=== PATIENT | male | born 1970 | race Caucasian/White ===

== ENCOUNTER → 2016-05-26 | Outpatient (CLI) | payer OTHER ==
[~2016-05-26] MED LIST: ASPI81TA PO; IBUPOTC PO; LOPR50TA PO
--- NOTE | 2016-05-27 11:27 | REP ---
NUCLEAR THYROID UPTAKE AND SCAN: Following the oral administration of 396 microcuries of iodine 123 as sodium iodine, thyroid uptake is measured. The 2 hour uptake is 10.34% which is within the normal range of 6-12%. The 24 hour uptake is 31.43% which is within the normal range of 25-35%. Thyroid scan shows both lobes of the thyroid to be relatively normal in size, both in the range of about 5 cm in length. No focal hot or cold nodule is seen. IMPRESSION: Essentially normal thyroid uptake, and normal appearing thyroid nuclear scan. Signed by Derick Ball MD 05/27/2016 01:29 P
== END | disposition home or self-care (01) ==
LOC: M RAD 10:44
PROVIDERS: ATTEND Physician Assistant Medical
DX: E05.00 Thyrotoxicosis with diffuse goiter without thyrotoxic crisis or storm (principal)
CPT/HCPCS: 78014; A9516

== ENCOUNTER 2018-08-21 23:20 | Emergency (ER) | payer OTHER ==
[~2018-08-21] VITALS: Ht 185.4 cm; Wt 109.5 kg
[~2018-08-21 23:20] MED LIST changes: +ASPI81CH36 PO; -ASPI81TA PO; +LOPR1TAB6 PO; -LOPR50TA PO
[2018-08-21] MEDS ORDERED: VITA50005 PO (23:32)
[2018-08-21] MEDS ORDERED: CYCL5TAB PO (23:32)
[2018-08-21] MEDS ORDERED: SILD100T PO (23:32)
[2018-08-21] MEDS ORDERED: AMLO5TAB6 PO (23:32)
[2018-08-21] MEDS ORDERED: METO1TAB7 PO (23:32)
[2018-08-21] MEDS ORDERED: HYDR25TAB PO (23:32)
[2018-08-21] MEDS ORDERED: METH25TAB PO (23:32)
[2018-08-22] MEDS ORDERED: GABA-1171 PO ×2 (00:06)
[2018-08-22 00:17] LABS: HEMATOCRIT 50.5 % (42.0-52.0); HEMOGLOBIN 18.2 g/dl (13.5-17.5); MEAN CORPUSCULAR HEMOGLOBIN 34.5 pg (27.0-33.0); MEAN CORPUSCULAR VOLUME 95.8 fl (80.0-96.0); PLATELET COUNT, AUTOMATED 315 10^3/uL (150-450); RED BLOOD COUNT 5.27 10^6/uL (4.30-6.10); WHITE BLOOD COUNT 12.5 10^3/uL (4.0-10.0)
[2018-08-22 00:48] LABS: BLOOD UREA NITROGEN 21 MG/DL (7-18); CALCIUM LEVEL 8.9 MG/DL (8.5-10.1); CARBON DIOXIDE LEVEL 31 MEQ/L (21-32); CHLORIDE LEVEL 98 MEQ/L (98-107); CPK CREATINE PHOSPHOKINASE 204 U/L (39-308); CREATININE FOR GFR 1.29 MG/DL (0.70-1.30); GLOMERULAR FILTRATION RATE > 60.0 (>60); GLUCOSE, FASTING 170 MG/DL (70-100); MB/CK RELATIVE INDEX 0.59 (< OR =4); POTASSIUM SERUM 3.7 MEQ/L (3.5-5.1); SODIUM LEVEL 137 MEQ/L (136-145); TROPONIN I < 0.02 NG/ML (< 0.10)
[2018-08-22 01:05] LABS: ATYPICAL LYMPH 1 % (0-5); BASOPHILS 1 % (0-4); EOSINOPHILS 4 % (0-5); LYMPHOCYTES 39 % (16-52); MONOCYTES 4 % (0-8); NEUTROPHILS 51 % (35-75)
[2018-08-22 01:09] LABS: PLATELET ESTIMATE NORMAL (NORMAL); SMUDGE CELLS 1+
[2018-08-22] MEDS ORDERED: METOPROLOL TART 50 MG TAB PO ONE ×2 (01:15→02:30)
[2018-08-22] MEDS ORDERED: METOPROLOL 5 MG/5 ML VIAL IV SCH (01:30)
[2018-08-22 02:00] LABS: FREE T4 0.74 NG/DL (0.76-1.46)
[2018-08-22 02:19] VITALS: BP 118/83
[2018-08-22 03:25] VITALS: BP 124/83
--- NOTE | 2018-08-22 06:38 | ECGEPIP ---
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
--- NOTE | 2018-08-22 06:45 | ECGEPIP ---
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
--- NOTE | 2018-08-22 07:59 | REP ---
Portable chest x-ray: Single view. History: Chest pain. Comparison study: January 26, 2016. Findings: EKG monitoring electrodes overlie the chest. Heart is not enlarged. Lungs are well inflated and clear. Pulmonary vasculature is not increased. No significant bony abnormality. Impression: Negative portable chest x-ray. Electronically Signed by Rock Ley MD 08/22/2018 07:50 A
== END 2018-08-22 03:34 | disposition home or self-care (01) ==
LOC: M ED 23:20
DX: I48.91 Unspecified atrial fibrillation (principal); E07.9 Disorder of thyroid, unspecified; F17.210 Nicotine dependence, cigarettes, uncomplicated; Z79.82 Long term (current) use of aspirin; Z79.899 Other long term (current) drug therapy

== ENCOUNTER 2018-12-25 11:14 | Emergency (ER) | payer OTHER ==
[~2018-12-25] VITALS: Ht 180.3 cm; Wt 108.2 kg
[~2018-12-25 11:14] MED LIST changes: +AMLO5TAB6 PO; +CYCL5TAB PO; +GABA-1171 PO; +HYDR25TAB PO; +METH25TAB PO; +METO1TAB7 PO; +SILD100T PO; +VITA50005 PO
[2018-12-25] MEDS ORDERED: NS 500 ML IV ONE (11:30)
[2018-12-25] MEDS ORDERED: METOPROLOL SUCC (TopROL XL) 100MG *XL* TAB PO ONE (11:30)
[2018-12-25] MEDS: METOPROLOL 5 MG/5 ML VIAL IV SCH ×3 (11:30→11:40)
[2018-12-25] MEDS ORDERED: METH10TA PO (11:36)
[2018-12-25 12:02] VITALS: BP 110/87
--- NOTE | 2018-12-25 12:34 | REP ---
CHEST, PORTABLE: There is no evidence of acute infiltrate. No pleural effusion is seen. The heart is normal in size. The mediastinal silhouette is unremarkable. The visualized osseous structures are intact. IMPRESSION: No acute pulmonary disease. Electronically Signed by Derick Ball MD 12/26/2018 09:27 A
[2018-12-25 12:45] LABS: BASO # 0.1 10^3/uL (0.0-0.2); BASO % 0.5 % (0.0-1.0); EOS # 0.1 10^3/uL (0.0-0.50); HEMATOCRIT 45.2 % (42.0-52.0); HEMOGLOBIN 15.6 g/dl (13.5-17.5); LYMPH # 2.7 10^3/uL (1.5-4.5); LYMPH % 25.7 % (24.0-44.0); MEAN CORPUSCULAR HEMOGLOBIN 34.7 pg (27.0-33.0); MEAN CORPUSCULAR HGB CONC 34.5 g/dl (32.0-36.5); MEAN CORPUSCULAR VOLUME 100.4 fl (80.0-96.0); MONO # 0.9 10^3/uL (0.0-0.8); NEUTROPHILS # 6.6 10^3/uL (1.8-7.7); NEUTROPHILS % 63.4 % (36.0-66.0); PLATELET COUNT, AUTOMATED 225 10^3/uL (150-450); WHITE BLOOD COUNT 10.4 10^3/uL (4.0-10.0)
[2018-12-25 13:03] LABS: INR 0.98; PROTHROMBIN TIME 12.7 SECONDS (11.8-14.0)
[2018-12-25 13:14] LABS: ALBUMIN 3.3 GM/DL (3.2-5.2); ALT/SGPT 44 U/L (12-78); BILIRUBIN,DIRECT 0.1 MG/DL (0.0-0.2); BILIRUBIN,TOTAL 0.5 MG/DL (0.2-1.0); BLOOD UREA NITROGEN 16 MG/DL (7-18); CARBON DIOXIDE LEVEL 29 MEQ/L (21-32); CHLORIDE LEVEL 105 MEQ/L (98-107); CPK CREATINE PHOSPHOKINASE 98 U/L (39-308); CREATININE FOR GFR 1.03 MG/DL (0.70-1.30); FREE T4 0.87 NG/DL (0.76-1.46); GLOMERULAR FILTRATION RATE > 60.0 (>60); GLUCOSE, FASTING 118 MG/DL (70-100); LIPASE 158 U/L (73-393); MB/CK RELATIVE INDEX 1.02 (< OR =4); NT-PRO BNP 251 PG/ML (<125); POTASSIUM SERUM 3.8 MEQ/L (3.5-5.1); SODIUM LEVEL 138 MEQ/L (136-145); TOTAL PROTEIN 6.8 GM/DL (6.4-8.2); TROPONIN I < 0.02 NG/ML (< 0.10)
[2018-12-25] MEDS ORDERED: ASPI-1 PO (13:50)
[2018-12-25] MEDS ORDERED: METO1TAB33 PO (13:51)
[2018-12-25 16:08] LABS: CK-MB VALUE MASS 1.2 NG/ML (<3.6); CPK CREATINE PHOSPHOKINASE 100 U/L (39-308); TROPONIN I < 0.02 NG/ML (< 0.10)
[2018-12-25 16:15] VITALS: BP 116/68
--- NOTE | 2018-12-25 19:53 | ECGEPIP ---
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
--- NOTE | 2018-12-25 19:58 | ECGEPIP ---
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
--- NOTE | 2018-12-25 20:02 | ECGEPIP ---
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
== END 2018-12-25 16:32 | disposition home or self-care (01) ==
LOC: M ED 11:14 → EDBD 11:14 → M ED 16:32
DX: I48.91 Unspecified atrial fibrillation (principal); I10 Essential (primary) hypertension; E78.5 Hyperlipidemia, unspecified; F43.10 Post-traumatic stress disorder, unspecified; E03.9 Hypothyroidism, unspecified; Z79.899 Other long term (current) drug therapy; Z79.82 Long term (current) use of aspirin; F17.210 Nicotine dependence, cigarettes, uncomplicated

== ENCOUNTER 2019-03-23 20:55 | Inpatient (IN) | payer OTHER ==
[~2019-03-23] VITALS: Ht 185.4 cm; Wt 103.1 kg
[~2019-03-23 20:55] MED LIST changes: +ASPI-1 PO; +METH10TA PO; +METO1TAB33 PO
[2019-03-23 21:37] LABS: HEMATOCRIT 47.3 % (42.0-52.0); HEMOGLOBIN 16.4 g/dl (13.5-17.5); MEAN CORPUSCULAR HEMOGLOBIN 33.3 pg (27.0-33.0); MEAN CORPUSCULAR HGB CONC 34.7 g/dl (32.0-36.5); MEAN CORPUSCULAR VOLUME 96.1 fl (80.0-96.0); RED BLOOD COUNT 4.92 10^6/uL (4.30-6.10); WHITE BLOOD COUNT 6.9 10^3/uL (4.0-10.0)
[2019-03-23] MEDS ORDERED: NS 1,000 ML IV ONE (21:45)
[2019-03-23 21:53] LABS: ALBUMIN 3.5 GM/DL (3.2-5.2); ALT/SGPT 61 U/L (12-78); BILIRUBIN,DIRECT < 0.1 MG/DL (0.0-0.2); BILIRUBIN,TOTAL 0.5 MG/DL (0.2-1.0); LIPASE 322 U/L (73-393); PLATELET COUNT, AUTOMATED 78 10^3/uL (150-450); TOTAL PROTEIN 7.4 GM/DL (6.4-8.2)
[2019-03-23 22:00] LABS: ATYPICAL LYMPH 9 % (0-5); EOSINOPHILS 2 % (0-3); LYMPHOCYTES 42 % (16-44); MONOCYTES 3 % (0-5); NEUTROPHILS 43 % (28-66)
[2019-03-23 22:01] LABS: PLATELET ESTIMATE DECREASED (NORMAL)
--- NOTE | 2019-03-23 22:17 | REPVR ---
PROCEDURE INFORMATION: Exam: CT Abdomen And Pelvis Without Contrast Exam date and time: 03/23/2019 9:37 PM Clinical history: 48 years old, male; Abdominal pain; Additional info: Abd pain, henry TECHNIQUE: Imaging protocol: Computed tomography of the abdomen and pelvis without contrast. Radiation optimization: All CT scans at this facility use at least one of these dose optimization techniques: automated exposure control; mA and/or kV adjustment per patient size (includes targeted exams where dose is matched to clinical indication); or iterative reconstruction. COMPARISON: No relevant prior studies available. FINDINGS: Lungs: Minimal rounded subpleural density in the posterior right lower lobe which is incompletely visualized. Liver: Normal. No mass. Gallbladder and bile ducts: The gallbladder is contracted with no stones. Pancreas: Normal. No ductal dilation. Spleen: Normal. No splenomegaly. Adrenals: Normal. No mass. Kidneys and ureters: Small nonobstructing left renal calculus in the lower pole. Stomach and bowel: Borderline distention of the stomach with fluid, food and gas. Appendix: A normal appendix is seen. Intraperitoneal space: Unremarkable. No free air. No significant fluid collection. Vasculature: There is minimal atherosclerotic calcification of the abdominal aorta. Lymph nodes: Unremarkable. No enlarged lymph nodes. Bladder: There is bladder wall thickening, however, the bladder is nondistended and is nonspecific. Reproductive: Unremarkable as visualized. Bones/joints: Unremarkable. No acute fracture. Soft tissues: Unremarkable. IMPRESSION: 1. Small nonobstructing left renal calculus. 2. There is borderline distention of the stomach which in view of a contracted gallbladder likely reflects recent ingestion. 3. Otherwise negative CT abdomen/pelvis. Electronically signed by: Agustin Mathur On 03/23/2019 22:16:41 PM
[2019-03-23] MEDS ORDERED: NS 3,140 ML in IV 1 EA IV ONE (22:30)
[2019-03-23] MEDS ORDERED: D 1010004 PO (23:17)
[2019-03-23] MEDS ORDERED: [UNRECOGNIZED DRUG - CODE] OU (23:17)
[2019-03-23] MEDS ORDERED: LISI40TA PO (23:17)
[2019-03-23] MEDS ORDERED: METO200T28 PO (23:17)
[2019-03-23] MEDS ORDERED: BAYE325T16 PO (23:17)
[2019-03-23] MEDS ORDERED: DAYT1CAP9 PO (23:17)
[2019-03-23] MEDS ORDERED: CALCIUM GLUCONATE 1,000 MG in D5W MINI-BAG PLUS 100 ML IV ONE (23:30)
[2019-03-23] MEDS ORDERED: POTASSIUM CHLORIDE 10 MEQ SR TABLET PO ONE (23:30)
--- NOTE | 2019-03-24 01:04 | REPVR ---
PROCEDURE INFORMATION: Exam: XR Chest, 1 View Exam date and time: 03/24/2019 12:50 AM Clinical history: 48 years old, male; Other: SOB TECHNIQUE: Imaging protocol: XR of the chest Views: 1 view. COMPARISON: CR PORTABLE CHEST X-RAY 12/25/2018 11:31 AM FINDINGS: Lungs: Unremarkable. No consolidation. Pleural space: Unremarkable. No pleural effusion. No pneumothorax. Heart/Mediastinum: Unremarkable. No cardiomegaly. Bones/joints: Unremarkable. IMPRESSION: Negative chest, unchanged from 12/25/2018. Electronically signed by: Agustin Mathur On 03/24/2019 01:04:26 AM
[2019-03-24 01:12] LABS: AMPHETAMINES LEVEL URINE NEGATIVE (NEGATIVE); BARBITURATES URINE NEGATIVE (NEGATIVE); BENZODIAZEPINES URINE NEGATIVE (NEGATIVE); CANNABINOIDS URINE NEGATIVE (NEGATIVE); COCAINE METABOLITE URINE NEGATIVE (NEGATIVE); METHADONE URINE NEGATIVE (NEGATIVE); OPIATES URINE NEGATIVE (NEGATIVE); PHENCYCLIDINE URINE NEGATIVE (NEGATIVE)
[2019-03-24] MEDS: NS 1,000 ML IV SCH ×2 (01:16→01:26)
[2019-03-24] MEDS ORDERED: NS 1,000 ML IV SCH (03:00)
[2019-03-24 04:00] VITALS: BP 105/63
[2019-03-24 05:40] LABS: HEMATOCRIT 42.4 % (42.0-52.0); HEMOGLOBIN 14.6 g/dl (13.5-17.5); MEAN CORPUSCULAR HGB CONC 34.4 g/dl (32.0-36.5); MEAN CORPUSCULAR VOLUME 95.9 fl (80.0-96.0); RED BLOOD COUNT 4.42 10^6/uL (4.30-6.10); WHITE BLOOD COUNT 5.1 10^3/uL (4.0-10.0)
[2019-03-24 05:42] LABS: PLATELET COUNT, AUTOMATED 71 10^3/uL (150-450)
[2019-03-24 05:58] LABS: BLOOD UREA NITROGEN 55 MG/DL (7-18); CARBON DIOXIDE LEVEL 22 MEQ/L (21-32); CHLORIDE LEVEL 111 MEQ/L (98-107); CREATININE FOR GFR 2.65 MG/DL (0.70-1.30); GLOMERULAR FILTRATION RATE 27.5 (>60); GLUCOSE, FASTING 118 MG/DL (70-100); POTASSIUM SERUM 3.8 MEQ/L (3.5-5.1); SODIUM LEVEL 141 MEQ/L (136-145)
[2019-03-24 06:20] LABS: ERYTHROCYTE SEDIMENTATION RATE 26 mm/hr (0-15)
--- NOTE | 2019-03-24 06:54 | REPVR ---
PROCEDURE INFORMATION: Exam: XR Chest, 1 View Exam date and time: 03/24/2019 6:35 AM Clinical history: 48 years old, male; Other: SOB 5 liter ns ddfor renal failure R/O edema; Additional info: SOB S/P 5liters ns for renal failure R/O edema TECHNIQUE: Imaging protocol: XR of the chest Views: 1 view. COMPARISON: CR PORTABLE CHEST X-RAY 03/24/2019 12:41 AM FINDINGS: Lungs: Unremarkable. No consolidation. Pleural space: Unremarkable. No pleural effusion. No pneumothorax. Heart/Mediastinum: Unremarkable. No cardiomegaly. Bones/joints: Unremarkable. IMPRESSION: Negative chest, unchanged from a study done earlier in the day. Electronically signed by: Agustin Mathur On 03/24/2019 06:54:27 AM
[2019-03-24 08:00] VITALS: BP 128/71
[2019-03-24] MEDS ORDERED: SLF 3 ML SYR IV PRN (08:15)
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
[2019-03-24] MEDS: VITAMIN D 1,000 INTERNATIONAL UNITS TABLET PO SCH (08:31)
[2019-03-24] MEDS: LR 1,000 ML IV SCH ×2 (08:51→15:35)
[2019-03-24] MEDS ORDERED: ASPIRIN 325 MG TAB PO SCH (09:00)
[2019-03-24 09:05] LABS: FREE T4 1.42 NG/DL (0.76-1.46); THYROID STIMULATING HORMONE 0.272 uIU/ML (0.358-3.740)
--- NOTE | 2019-03-24 11:25 | IPN ---
DATE: 03/24/2019 PRIMARY CARE PROVIDER: [facility]. FAMILY PHYSICIAN: [facility]. Yordan is seen in PCU. He was admitted for acute kidney injury. He has a baseline creatinine from 12/25/2018 of 1.0. He had a creatinine of 6.4 on admission. It is down to 2.6 after hydration. History and physical is pending, but signed out indicated he had gastroenteritis, nausea and vomiting for several days, continues to take his lisinopril. Takes no NSAIDs. There is no past history of any real problems. PAST MEDICAL HISTORY: Significant primarily for history of Grave's disease, for which he on methimazole. He had atrial fibrillation with rapid ventricular response for which he was admitted on 01/25-01/28/2016. He feels much better. He is not having nausea or vomiting. His blood pressure has recovered. He feels nearly back to baseline. PHYSICAL EXAMINATION: 105/63, pulse 78, afebrile. General appearance: Alert, conversant. In no distress. HEENT: Unremarkable. No jugular venous distention (JVD). Lungs: Clear. Heart: Regular without murmur. Abdomen: Soft, nontender. No masses. No peripheral edema. LABS: Potassium of 3.8, creatinine is 2.65. White count 5.2, hemoglobin 14.6, platelets of 71. His baseline platelets are normal, being 78 yesterday and 71 today. WBC, differential shows atypical lymphocytes of 90%. IMPRESSION: 1. Acute kidney injury. Probably from dehydration/gastroenteritis as well as YODIT inhibitor therapy. He has responded well to hydration. At this point we are changing his IV fluids as saline can itself be nephrotoxic. Will change it to lactated Ringers 125 an hour. Multiple lab tests are pending. Renal function is improving. I have not involved nephrology yet as his renal function continues to improve. His YODIT inhibitor is on hold. He has taken no NSAIDs over the counter and had no recent exposures to intravenous contrast dye. 2. Thrombocytopenia. This could be secondary to acute injury as there can be a transient drop of platelets with acute kidney injury. However, could be a manifestation of idiopathic thrombocytopenic purpura (ITP). Followup CBCs have been ordered. I have ordered a peripheral smear and an MICHEAL, a GI panel and a Helicobacter assay. He also has a history of Grave's disease which can be associated with ITP. He is on methimazole. 3. History of Grave's disease. On methimazole 10 mg daily. I have ordered a free T4 and TSH. He has no symptoms of hyperthyroidism. 4. Hypertension. His antihypertensives are on hold. His blood pressure is recovering from the dehydration. When his blood pressure recovers, we will probably restart the metoprolol. Will hold off on the lisinopril and hydrochlorothiazide. 5. Chronic pain. Apparently he has an appointment with the pain clinic coming up. He is on gabapentin as an outpatient which we will hold for now.
--- NOTE | 2019-03-24 11:58 | ECGEPIP ---
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
[2019-03-24 12:00] VITALS: BP 118/82
[2019-03-24] MEDS: SLF 3 ML SYR IV SCH ×2 (14:12→22:10)
[2019-03-24 16:00] VITALS: BP 112/72
[2019-03-24 20:00] VITALS: BP 136/73
[2019-03-24 23:59] VITALS: BP 105/72
[2019-03-25] MEDS: LR 1,000 ML IV SCH ×2 (00:04→08:00)
[2019-03-25 04:00] VITALS: BP 148/80
[2019-03-25] MEDS: SLF 3 ML SYR IV SCH (05:23)
[2019-03-25 05:39] LABS: HEMATOCRIT 40.9 % (42.0-52.0); MEAN CORPUSCULAR HEMOGLOBIN 33.3 pg (27.0-33.0); MEAN CORPUSCULAR HGB CONC 34.2 g/dl (32.0-36.5); MEAN CORPUSCULAR VOLUME 97.1 fl (80.0-96.0); RED BLOOD COUNT 4.21 10^6/uL (4.30-6.10)
[2019-03-25 05:42] LABS: PLATELET COUNT, AUTOMATED 97 10^3/uL (150-450)
[2019-03-25 05:58] LABS: BLOOD UREA NITROGEN 29 MG/DL (7-18); CALCIUM LEVEL 8.8 MG/DL (8.5-10.1); CARBON DIOXIDE LEVEL 26 MEQ/L (21-32); CHLORIDE LEVEL 106 MEQ/L (98-107); CREATININE FOR GFR 1.18 MG/DL (0.70-1.30); GLOMERULAR FILTRATION RATE > 60.0 (>60); GLUCOSE, FASTING 119 MG/DL (70-100); POTASSIUM SERUM 3.9 MEQ/L (3.5-5.1); SODIUM LEVEL 139 MEQ/L (136-145)
[2019-03-25 06:18] LABS: CRYOGLOBULINS NEGATIVE (NEGATIVE)
[2019-03-25 08:00] VITALS: BP 128/88
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
[2019-03-25] MEDS: VITAMIN D 1,000 INTERNATIONAL UNITS TABLET PO SCH (09:35)
[2019-03-25 11:14] LABS: ALBUMIN 3.26 GM/DL (3.29-5.55); ALBUMIN % 54.3 % (55.8-66.1); ALPHA-1-GLOBULINS 0.42 GM/DL (0.17-0.41); ALPHA-2-GLOBULINS 0.89 GM/DL (0.42-0.99); ALPHA-2-GLOBULINS % 14.8 % (7.1-11.8); BETA-1-GLOBULINS 0.29 GM/DL (0.28-0.60); BETA-1-GLOBULINS % 4.9 % (4.7-7.2); BETA-2-GLOBULINS 0.37 GM/DL (0.19-0.55); BETA-2-GLOBULINS % 6.1 % (3.2-6.5); GAMMA GLOBULIN % 12.9 % (11.1-18.8); GAMMA GLOBULINS 0.77 GM/DL (0.65-1.58)
[2019-03-25 12:38] LABS: HEPATITIS B SURFACE ANTIGEN NEGATIVE (NEGATIVE)
[2019-03-25 13:06] LABS: HEPATITIS B CORE ANTIBODY IGM NEGATIVE (NEGATIVE)
[2019-03-25 13:07] LABS: HEPATITIS A ANTIBODY IGM NEGATIVE (NEGATIVE)
[2019-03-27 00:06] LABS: ANA (HEP2) Negative (.); H PYLORI SERUM QUANT IGM <9.0 units (0.0-8.9)
[2019-03-27 10:23] LABS: URINE TOTAL PROTEIN 44.9 MG/DL (0-12)
[2019-03-28 11:13] LABS: UPEP INTERPRETATION NO M-SPIKE NOTED; URINE VOLUME RANDOM ML
== END 2019-03-25 11:55 | disposition home or self-care (01) | DRG 684 ==
LOC: M ED 20:55 → M ED INP 22:56 → M PCU 03-24 00:20
PROVIDERS: ADMIT General Practice; ATTEND General Practice
DX: N17.9 Acute kidney failure, unspecified (principal); I48.91 Unspecified atrial fibrillation; D69.59 Other secondary thrombocytopenia; K52.9 Noninfective gastroenteritis and colitis, unspecified; I11.9 Hypertensive heart disease without heart failure; I95.9 Hypotension, unspecified; E78.5 Hyperlipidemia, unspecified; F43.10 Post-traumatic stress disorder, unspecified; K76.0 Fatty (change of) liver, not elsewhere classified; M54.5 Low back pain; Z79.82 Long term (current) use of aspirin; Z79.899 Other long term (current) drug therapy; F17.210 Nicotine dependence, cigarettes, uncomplicated; F10.10 Alcohol abuse, uncomplicated; J06.9 Acute upper respiratory infection, unspecified; E05.00 Thyrotoxicosis with diffuse goiter without thyrotoxic crisis or storm

== ENCOUNTER 2019-06-05 21:02 | Emergency (ER) | payer OTHER ==
[~2019-06-05] VITALS: Ht 180.3 cm; Wt 105.3 kg
[~2019-06-05 21:02] MED LIST changes: +ASPI81CH32 PO; -ASPI81CH36 PO; +BAYE325T16 PO; +D 1010004 PO; +DAYT1CAP9 PO; +LISI40TA PO; +METO200T28 PO; +[UNRECOGNIZED DRUG - CODE] OU
[2019-06-05 21:46] LABS: BASO % 0.4 % (0.0-1.0); EOS # 0.1 10^3/uL (0.0-0.5); EOS % 0.8 % (0.0-3.0); HEMATOCRIT 44.5 % (42.0-52.0); HEMOGLOBIN 14.6 g/dl (13.5-17.5); LYMPH % 35.1 % (24.0-44.0); MEAN CORPUSCULAR HEMOGLOBIN 31.7 pg (27.0-33.0); MEAN CORPUSCULAR HGB CONC 32.8 g/dl (32.0-36.5); MEAN CORPUSCULAR VOLUME 96.5 fl (80.0-96.0); MONO # 0.9 10^3/uL (0.0-0.8); MONO % 7.6 % (0.0-5.0); NEUTROPHILS # 6.3 10^3/uL (1.5-8.5); NEUTROPHILS % 55.8 % (36.0-66.0); PLATELET COUNT, AUTOMATED 230 10^3/uL (150-450); RED BLOOD COUNT 4.61 10^6/uL (4.30-6.10); WHITE BLOOD COUNT 11.3 10^3/uL (4.0-10.0)
[2019-06-05 22:20] LABS: ALBUMIN 3.4 GM/DL (3.2-5.2); ALT/SGPT 63 U/L (12-78); BILIRUBIN,DIRECT 0.1 MG/DL (0.0-0.2); BILIRUBIN,TOTAL 0.5 MG/DL (0.2-1.0); BLOOD UREA NITROGEN 21 MG/DL (7-18); CALCIUM LEVEL 8.9 MG/DL (8.5-10.1); CARBON DIOXIDE LEVEL 28 MEQ/L (21-32); CHLORIDE LEVEL 108 MEQ/L (98-107); GLOMERULAR FILTRATION RATE > 60.0 (>60); GLUCOSE, FASTING 113 MG/DL (70-100); LIPASE 137 U/L (73-393); POTASSIUM SERUM 4.3 MEQ/L (3.5-5.1); SODIUM LEVEL 143 MEQ/L (136-145)
[2019-06-05] MEDS ORDERED: ONDANSETRON 4MG/2ML VIAL (J2405) IV ONE (23:00)
[2019-06-05] MEDS ORDERED: NS 1,000 ML IV ONE (23:00)
[2019-06-05] MEDS ORDERED: KETOROLAC 30 MG/ML VIAL (J1885) IV ONE (23:00)
--- NOTE | 2019-06-06 01:16 | REPVR ---
PROCEDURE INFORMATION: Exam: CT Abdomen And Pelvis Without Contrast Exam date and time: 06/05/2019 10:59 PM Age: 48 years old Clinical indication: Abdominal pain; Flank; Left; Additional info: Left flank/llq pain TECHNIQUE: Imaging protocol: Computed tomography of the abdomen and pelvis without contrast. Radiation optimization: All CT scans at this facility use at least one of these dose optimization techniques: automated exposure control; mA and/or kV adjustment per patient size (includes targeted exams where dose is matched to clinical indication); or iterative reconstruction. COMPARISON: CT ABD PELVIS W/O CONTRAST 03/23/2019 9:35 PM FINDINGS: Liver: The liver is low attenuation indicating hepatic steatosis. Gallbladder and bile ducts: Normal. No calcified stones. No ductal dilation. Pancreas: Normal. No ductal dilation. Spleen: Normal. No splenomegaly. Adrenals: Normal. No mass. Kidneys and ureters: Mild left hydronephrosis with obstructing 3 mm distal left ureteral calculus lying approximately 1.5 cm from the ureterovesical junction. Kidneys are unremarkable. No hydronephrosis on the right. Stomach and bowel: Unremarkable. No obstruction. No mucosal thickening. Appendix: No evidence of appendicitis. Intraperitoneal space: Unremarkable. No free air. No significant fluid collection. Vasculature: Unremarkable. No abdominal aortic aneurysm. Lymph nodes: Unremarkable. No enlarged lymph nodes. Bladder: Unremarkable as visualized. Reproductive: Unremarkable as visualized. Bones/joints: There are degenerative changes in the spine and pelvis. Soft tissues: Unremarkable. IMPRESSION: 1. Mild left hydronephrosis with obstructing 3 mm distal left ureteral calculus. 2. Hepatic steatosis. Electronically signed by: Govind Cash On 06/06/2019 01:16:23 AM
[2019-06-06] MEDS ORDERED: TAMSULOSIN 0.4 MG CAP PO ONE (01:30)
[2019-06-06] MEDS ORDERED: FLOM0.4C39 PO (01:49)
[2019-06-06] MEDS ORDERED: MORPHINE 4 MG/ML 1ML VIAL/SYRINGE (J2270) IV ONE (02:00)
[2019-06-06] MEDS ORDERED: NORCO 5/325MG TABLET (BULK FOR ED) PO ONE (02:30)
[2019-06-06 03:03] VITALS: BP 126/76
== END 2019-06-06 03:05 | disposition home or self-care (01) ==
LOC: M ED 21:02
DX: N13.2 Hydronephrosis with renal and ureteral calculous obstruction (principal); R11.0 Nausea; I10 Essential (primary) hypertension; I48.91 Unspecified atrial fibrillation; E78.5 Hyperlipidemia, unspecified; G47.33 Obstructive sleep apnea (adult) (pediatric); E05.90 Thyrotoxicosis, unspecified without thyrotoxic crisis or storm; M54.30 Sciatica, unspecified side; N52.9 Male erectile dysfunction, unspecified; F17.210 Nicotine dependence, cigarettes, uncomplicated; Z79.899 Other long term (current) drug therapy; Z79.82 Long term (current) use of aspirin
CPT/HCPCS: 74176; 80047; 80048; 80076; 81001; 83605; 83690; 85025; 96361; 96374; 96375; 99284; J1885; J2270; J2405

== ENCOUNTER → 2019-08-02 | Outpatient (CLI) | payer OTHER ==
[~2019-08-02] MED LIST changes: +FLOM0.4C39 PO
--- NOTE | 2019-08-06 12:15 | SLEEPCENT ---
DATE OF PROCEDURE: 08/02/2019 ORDERED BY: Haley Neri of [facility] Nocturnal polysomnography was performed for evaluation of sleep physiology. 7 hours and 31 minutes of data were reviewed. There were 409.5 minutes of sleep identified. Sleep latency was normal at 10 minutes. REM latency was short at 53.5 minutes. Sleep architecture was well preserved. There were 5 REM cycles. Overall sleep efficiency was 92.2%. The electrocardiogram showed a sinus rhythm with an average heart rate of 78 beats per minute. Electroencephalogram (EEG) showed normal waveforms for awake and sleep. There were 183 respiratory events identified of 10 seconds in duration or greater for an apnea-hypopnea index of 26.8. The events were primarily obstructive, not exclusive to sleep stage nor body posture. Arousals were seen 21.2 times per hour from respiratory events and oxygen desaturations were seen into the 80s. There was some activity in the limb EMG leads, but limb movement arousals were few at 1.5 per hour. There was snoring, but other measures of sleep physiology were normal. IMPRESSION: Obstructive sleep apnea syndrome (G47.33). Apnea-hypopnea index 26.8. RECOMMENDATION: The patient should be encouraged to return to the sleep disorder center for pressure therapy. In the interim, alcohol and sedative avoidance should be practiced and caution exercised during the operation of motor vehicles.
== END ==
LOC: M SLEEP 19:46
PROVIDERS: ATTEND Physician Assistant Medical
DX: G47.30 Sleep apnea, unspecified (principal)

== ENCOUNTER → 2020-08-27 | Outpatient (CLI) | payer OTHER, SELFPAY ==
[~2020-08-27] MED LIST changes: +AMLO1TAB24 PO; -AMLO5TAB6 PO; +HYDR-3490 PO; -HYDR25TAB PO; -LISI40TA PO; +LISI40TA4 PO
== END ==
LOC: M LABSMTC 11:21
PROVIDERS: ATTEND Family Medicine
DX: Z11.52 Encounter for screening for COVID-19 (principal)
CPT/HCPCS: C9803; U0003

== ENCOUNTER 2021-10-14 13:55 | Emergency (ER) | payer OTHER, SELFPAY ==
[~2021-10-14] VITALS: Ht 180.3 cm; Wt 104.5 kg
[2021-10-14 13:56] VITALS: BP 136/76
[2021-10-14] MEDS ORDERED: FLUORESCEIN OPHTH 1 MG STRIP OS ONE (16:35)
[2021-10-14] MEDS ORDERED: PROPARACAINE 0.5% OPHTH SOL 15ML OS ONE (16:35)
[2021-10-14] MEDS ORDERED: ERYT5OIN25 OS (16:58)
[2021-10-14] MEDS ORDERED: ERYTHROMYCIN OPHTH OINT OS ONE (17:00)
== END 2021-10-14 17:18 | disposition home or self-care (01) ==
LOC: M ED 13:55
DX: S05.02XA Injury of conjunctiva and corneal abrasion without foreign body, left eye, initial encounter (principal); X58.XXXA Exposure to other specified factors, initial encounter; Y92.9 Unspecified place or not applicable; Y93.9 Activity, unspecified; Y99.9 Unspecified external cause status; F17.200 Nicotine dependence, unspecified, uncomplicated; Z79.82 Long term (current) use of aspirin; Z79.899 Other long term (current) drug therapy

== ENCOUNTER → 2022-05-30 | Outpatient (CLI) | payer OTHER ==
[~2022-05-30] MED LIST changes: +ERYT5OIN25 OS
== END ==
LOC: M PLARAD 08:57
DX: R91.8 Other nonspecific abnormal finding of lung field (principal)
CPT/HCPCS: 78815; A9552